=== PATIENT | female | born 1990 | race Caucasian/White ===

== ENCOUNTER 2016-12-26 21:02 | Outpatient (CLI) | payer OTHER ==
[~2016-12-26] VITALS: Ht 165.1 cm; Wt 89.0 kg
[~2016-12-26 21:02] MED LIST: ARTIFICIALS TEA30 ML LEFT EYE; BACTRIM,SEPT1 TABLET PO; IBUPROFEN800 MG PO; MOTRIN800 MG PO; PREDNISONE50 MG PO; ULTRAM50 MG PO
[2016-12-26 21:23] VITALS: BP 120/59
[2016-12-26 22:02] LABS: ADD MIUA? YES; BILIRUBIN NEGATIVE; BLOOD NEGATIVE; COLOR YELLOW ((YELLOW)); GLUCOSE (STRIP) NEGATIVE; KETONES NEGATIVE; LEUKOCYTES SMALL; NITRITE NEGATIVE; PROTEIN (STRIP) NEGATIVE; SPECIFIC GRAVITY 1.015 (1.000-1.030)
[2016-12-26 22:11] LABS: BACTERIA RARE /HPF; EPITHELIAL CELLS 1+ /HPF; MUCUS TRACE /LPF; RED BLOOD CELLS NONE SEEN /HPF (0-5); UCUL ADDED? NO; WHITE BLOOD CELLS 0-5 /HPF (0-5)
[2017-01-03] MEDS ORDERED: ENDOCET 5-3251 EACH PO (15:13)
[2017-01-03] MEDS ORDERED: IBUPROFEN800 MG PO (15:13)
[2017-01-04] MEDS ORDERED: FEOSOL325 MG PO (09:52)
[2017-01-07] MEDS ORDERED: NITROFURANTOIN100 M3 PO (08:46)
[2017-01-07] MEDS ORDERED: COLACE100 MG PO (08:47)
[2017-01-07] MEDS ORDERED: SPRINTEC1 EACH PO (11:26)
[2017-01-07] MEDS ORDERED: ENDOCET 5-3251 EACH PO (11:47)
== END 2016-12-26 22:40 | disposition home or self-care (01) ==
LOC: LDRP-OP 21:02 → 2WEST 21:03 → LDRP-OP 03-14 14:02
PROVIDERS: Nurse Practitioner
DX: O47.03 False labor before 37 completed weeks of gestation, third trimester (principal); Z3A.33 33 weeks gestation of pregnancy
CPT/HCPCS: 59025; 81003; G0378

== ENCOUNTER 2016-12-31 09:30 | Outpatient (CLI) | payer OTHER ==
[~2016-12-31] VITALS: Ht 165.1 cm; Wt 88.9 kg
[2016-12-31 09:49] VITALS: BP 111/60
[2016-12-31] MEDS ORDERED: FEOSOL325 MG PO (10:02)
[2016-12-31 12:10] LABS: AMPHETAMINE NEGATIVE (500 ng/mL); BARBITURATES NEGATIVE (200 ng/mL); BENZODIAZEPINES NEGATIVE (150 ng/mL); COCAINE NEGATIVE (150 ng/mL); INTERNAL CONTROLS VALID? YES; METHADONE NEGATIVE (200 ng/mL); METHAMPHETAMINE NEGATIVE (500 ng/mL); OPIATES (MORPHINE) NEGATIVE (100 ng/mL); OXYCODONE NEGATIVE (100 ng/mL); PHENCYCLIDINE NEGATIVE (25 ng/mL); PROPOXYPHENE NEGATIVE (300 ng/mL); THC CANNABINOIDS NEGATIVE (50 ng/mL); TRICYCLIC ANTIDEPRESSANTS NEGATIVE (300 ng/mL)
[2016-12-31 16:30] LABS: CANDIDA DNA PROBE NEGATIVE; GARDNERELLA DNA PROBE NEGATIVE; INTERNAL CONTROL VALID? YES
[2017-01-03] MEDS ORDERED: IBUPROFEN800 MG PO (15:13)
[2017-01-03] MEDS ORDERED: ENDOCET 5-3251 EACH PO (15:13)
[2017-01-04] MEDS ORDERED: FEOSOL325 MG PO (09:52)
== END 2016-12-31 11:30 | disposition home or self-care (01) ==
LOC: LDRP-OP 09:30 → 2WEST 09:31 → LDRP-OP 03-14 22:58
PROVIDERS: Advanced Practice Midwife
DX: O26.893 Other specified pregnancy related conditions, third trimester (principal); Z3A.34 34 weeks gestation of pregnancy; O99.333 Smoking (tobacco) complicating pregnancy, third trimester; F17.210 Nicotine dependence, cigarettes, uncomplicated
CPT/HCPCS: 59025; 87480; 87510; 87660; G0378